=== PATIENT | male | born 1980 | race African-American/Black ===

== ENCOUNTER 2021-03-12 13:10 | Inpatient (IN) | payer MEDICAID ==
[~2021-03-12] VITALS: Ht 177.8 cm; Wt 121.1 kg
[2021-03-12] MEDS ORDERED: IV NS 0.9% 1,000 ML BAG IV ONE (13:30)
--- NOTE | 2021-03-12 13:30 | NUR ---
BIB ra c/o altered s/p possible heroin od. 2mg narcan given in field. The patient alert to his name. Stated that he took Fentanyl. In room air. Respiration regular and unlabored. Attached to the monitor. Will continue to monitor the patient.
--- NOTE | 2021-03-12 13:32 | NUR ---
EMPLOYMENT TRAINER LAC G 18.
[2021-03-12 13:40] LABS: BASOPHILS % (AUTO) 1.3 % (0.0-2.0); EOSINOPHILS % (AUTO) 1.9 % (0.0-6.0); HEMATOCRIT 39 % (39-51); HEMOGLOBIN 12.9 g/dL (13.5-17.5); LYMPHOCYTES # (AUTO) 1.5 K/uL (0.8-4.8); LYMPHOCYTES % (AUTO) 38.3 % (20.0-44.0); MEAN CORPUSCULAR HGB CONC 33 g/dl (31.0-36.0); MEAN CORPUSCULAR VOLUME 91 fL (80-96); MONOCYTES # (AUTO) 0.3 K/uL (0.1-1.30); MONOCYTES % (AUTO) 8.6 % (2.0-12.0); NEUTROPHILS # (AUTO) 1.9 K/uL (1.8-8.9); NEUTROPHILS % (AUTO) 49.9 % (43.0-81.0); PLATELET COUNT (AUTO) 130 K/uL (150-450); RED BLOOD CELL COUNT(AUTO) 4.31 MIL/uL (4.5-6.0); WHITE BLOOD COUNT (AUTO) 3.8 K/uL (4.3-11.0)
[2021-03-12] MEDS ORDERED: NALOXONE PREFILLED SYRINGE 2 MG/2 ML SYRINGE ONE (13:56)
[2021-03-12] MEDS ORDERED: NALOXONE PREFILLED SYRINGE 2 MG/2 ML SYRINGE IV ONE (14:00)
[2021-03-12] MEDS ORDERED: NALOXONE HCL 0.4 MG/ML AMPUL IV ONE (14:00)
--- NOTE | 2021-03-12 14:08 | NUR ---
The patient`s oxygen saturation is at 82% with simple mask 10l/min. Made Dr Miller aware. The patient is placed on oxygen at 15l/min via non-rebreather mask. Oxygen imporved to 92%. Will continue to monitor the patient
[2021-03-12 14:13] LABS: ALANINE AMINOTRANSFERASE 15 U/L (12-78); ALBUMIN 3.5 g/dL (3.4-5.0); ALCOHOL, BLOOD < 3 mg/dL (0-0); ALKALINE PHOSPHATASE 80 U/L (46-116); ASPARTATE AMINOTRANSFERASE 21 U/L (15-37); BILIRUBIN,DIRECT 0.1 mg/dL (0.0-0.2); BILIRUBIN,TOTAL 0.3 mg/dL (0.2-1.0); CALCIUM, SERUM 8.6 mg/dL (8.5-10.1); CARBON DIOXIDE 27 mmol/L (21-32); CHLORIDE 105 mmol/L (98-107); CREATININE 1.5 mg/dL (0.6-1.3); GLUCOSE 134 mg/dL (74-106); POTASSIUM 3.2 mmol/L (3.5-5.1); SODIUM SERUM 143 mmol/L (136-145); TOTAL PROTEIN, SERUM 7.8 g/dL (6.4-8.2); UREA NITROGEN, BLOOD 12 mg/dL (7-18)
[2021-03-12 14:14] LABS: ACETAMINOPHEN 0 ug/ml (10-30)
[2021-03-12 15:00] LABS: ABG BASE EXCESS -3.7 mmol/L; ABG OXYGEN SATURATION 87.5 % (92.0-98.5); ABG PCO2 44.7 mmHg (35.0-45.0); ABG PH 7.318 (7.350-7.450); ABG PO2 56.8 mmHg (75.0-100.0); AaDO2 611.5 mmHg; COHb 0.9 % (0.5-1.5); MetHb 0.5 % (0.0-1.5); O2Hb 86.3 % (94.0-97.0); SITE, ABG Left Radial; VENT MODE, BG NRB 15L 100%
[2021-03-12 15:09] LABS: BILIRUBIN,URINE Negative (NEGATIVE); COLOR,URINE YELLOW (YELLOW); LEUKOCYTE ESTERASE ,URINE Negative (NEGATIVE); NITRITE, URINE Negative (NEGATIVE); PROTEIN,URINE 100 mg/dl (NEGATIVE); UGLUCOSE Negative (NEGATIVE); UROBILINOGEN,URINE 0.2 EU/dL (0.2)
--- NOTE | 2021-03-12 15:16 | NUR ---
MOVE SHEET SUBMITTED AND CALLED FOR ICU BED.
[2021-03-12 15:24] LABS: BACTERIA,URINE Few /HPF (None Seen); MUCUS,URINE Few /LPF (None Seen); SQUAMOUS EPITHELIAL CELL,UR Few /HPF (None Seen); WBC,URINE 0-2 /HPF (0-3)
--- NOTE | 2021-03-12 15:57 | NUR ---
THE PATIENT ALERT TO SELF. DENIES PAIN. IN NO APPARENT DISTRESS.
[2021-03-12] MEDS ORDERED: LORAZEPAM INJ 2 MG/ML VIAL IV PRN (16:00)
[2021-03-12] MEDS ORDERED: ONDANSETRON HCL/PF 4 MG/2 ML VIAL IVP PRN (16:00)
[2021-03-12] MEDS ORDERED: Z GUARD REMEDY 2 OZ OINT TP PRN (16:00)
--- NOTE | 2021-03-12 17:30 | NUR ---
report given to nurse Sam[place]oa
[2021-03-12 18:00] VITALS: BP 134/78
[2021-03-12] MEDS: POTASSIUM CL. PREMIX PERIPHER. 50 ML IV SCH ×2 (18:16→18:57)
--- NOTE | 2021-03-12 18:17 | NUR ---
The patient is transfered to [facility] per [facility] policy.
--- NOTE | 2021-03-12 18:23 | NUR ---
RN NOTE 1755: Admitted patient from ED due to ARF secondary to possible OD. Patient is lethargic, unable to answer questions at this time. Skin assessment done, intact. 2 PIVs intact. On Bipap / rate 16, 100%, sat 97-98%. 1820: K replacement ongoing. Placed bed alarm on.
[2021-03-12 18:25] LABS: CREATININE, URINE 266.4 MG/DL (30.0-125.0)
[2021-03-12 19:00] VITALS: BP 125/75
--- NOTE | 2021-03-12 19:45 | NUR ---
BEAM BUILDER NOTE. RECEIVED PT IN BED IN SEMI-FOWLERS POSITION, ON BIPAP 15/5, 16, 100%. PT IN NO RESP DISTRESS, TOLERATING CURRENT SETTINGS. PT A/O X 1, LETHARGIC ABLE TO OPENS EYES, AND ABLE TO STATE HIS NAME. IV TO LAC & RAC PATENT AND INTACT FLUSHING WELL. SR ON THE MONITOR, pt CURRENTLY IS NPO, SIDE RAILS UP X 2, BED LOCKED AND IN THE LOWEST POSITION WILL CONTINUE TO MONITOR.
[2021-03-12 20:00] VITALS: BP 122/72
--- NOTE | 2021-03-12 20:08 | NUR ---
RECEIVED PT ON BIPAP 15, 16, 100%. NO RESP DISTRESS. PT TOLERATING SETTINGS. CONTINUE TO MONITOR. Addendum: 03/12/21 at 2009 by SERJIO LAKE RT Amended: Links added.
[2021-03-12] MEDS: HEPARIN SODIUM, PORCINE 5000 UNITS/1 ML VIAL SQ SCH (20:58)
[2021-03-12 21:00] VITALS: BP 102/65
[2021-03-12 22:00] VITALS: BP 117/70
[2021-03-12 23:00] VITALS: BP 110/64
[2021-03-13] VITALS (23 sets, daily range): BP systolic 90–134; BP diastolic 42–90
--- NOTE | 2021-03-13 01:23 | NUR ---
PT WOKE UP AND REMOVED THE BIPAP MASK OFF. PT PLACED ON 3L NC RN NOTIFIED. BIPAP S/B AND WILL CONTINUE TO MONITOR.
--- NOTE | 2021-03-13 02:00 | NUR ---
RN NOTE PT O2 SAT 87-88% AFTER BEING ON 5 L O2 NC FOR 30-MIN. PLACED PT ON NON-REBREATHER MASK AT 15/MIN. O2 SAT NOW 93%
[2021-03-13 04:43] LABS: BASOPHILS # (AUTO) 0.1 K/uL (0.0-0.2); BASOPHILS % (AUTO) 0.4 % (0.0-2.0); EOSINOPHILS % (AUTO) 0.1 % (0.0-6.0); HEMATOCRIT 40 % (39-51); HEMOGLOBIN 13.3 g/dL (13.5-17.5); LYMPHOCYTES # (AUTO) 0.6 K/uL (0.8-4.8); LYMPHOCYTES % (AUTO) 4.1 % (20.0-44.0); MEAN CORPUSCULAR HGB CONC 33 g/dl (31.0-36.0); MEAN CORPUSCULAR VOLUME 91 fL (80-96); MONOCYTES # (AUTO) 0.7 K/uL (0.1-1.30); MONOCYTES % (AUTO) 4.5 % (2.0-12.0); NEUTROPHILS # (AUTO) 13.3 K/uL (1.8-8.9); NEUTROPHILS % (AUTO) 90.9 % (43.0-81.0); PLATELET COUNT (AUTO) 132 K/uL (150-450); RED BLOOD CELL COUNT(AUTO) 4.44 MIL/uL (4.5-6.0); WHITE BLOOD COUNT (AUTO) 14.6 K/uL (4.3-11.0)
[2021-03-13 05:04] LABS: CALCIUM, SERUM 8.4 mg/dL (8.5-10.1); CREATININE 1.1 mg/dL (0.6-1.3); MAGNESIUM 1.9 mg/dL (1.8-2.4); POTASSIUM 3.7 mmol/L (3.5-5.1)
--- NOTE | 2021-03-13 06:58 | NUR ---
RN NOTE PT CONTINUES TO BE ON NON REBREATHER MASK 15 L/MIN O2 SAT 97-99%, A/O X 3 PT REMAINS NPO, ASPIRATION PRECAUTIONS IN PLACE, SIDE RAILS UP X 2, BED LOCKED AND IN THE LOWEST POSITION, CALL LIGHT WITHIN REACH. WILL CONTINUE TO MONITOR PT.
--- NOTE | 2021-03-13 07:00 | NUR ---
RN NOTES RECEIVED PT ON BED, A/Ox3-4, ON NON- REBREATHER MASK AT 15L , , O2 SAT WNL, NO DISTRESS NOTED, ON TELE SR HR IN 80'S, PT NPO AT THIS TIME, IV SITES ,CLEAN DRY AND INTACT, SR UP x3, CALL LIGHT WITHIN EASY REACH, BED KAM AND IN LOWEST POSITION, CONTINUE TO MONITOR.
[2021-03-13] MEDS: HEPARIN SODIUM, PORCINE 5000 UNITS/1 ML VIAL SQ SCH ×2 (08:27→20:11)
[2021-03-13] MEDS ORDERED: PANTOPRAZOLE 40 MG VIAL IV SCH (09:00)
[2021-03-13 10:37] LABS: ABG BASE EXCESS 1.8 mmol/L; ABG OXYGEN SATURATION 92.2 % (92.0-98.5); ABG PCO2 48.4 mmHg (35.0-45.0); ABG PH 7.375 (7.350-7.450); ABG PO2 61.6 mmHg (75.0-100.0); COHb 0.4 % (0.5-1.5); MetHb 0.4 % (0.0-1.5); O2Hb 91.5 % (94.0-97.0); SITE, ABG Right Radial; VENT MODE, BG NRB AT 15LPM
[2021-03-13] MEDS: PIPERACILLIN /TAZOBACTAM 3.375 G in IV D5W 50 ML IV SCH ×3 (11:41→23:00)
--- NOTE | 2021-03-13 12:00 | NUR ---
RN NOTES PT IS MORE ALERT , NURSING SWALLOWING EVAL DONE, PT ABLE TO EAT WELL, METAL FURNITURE PANEL COVERER NOTIFIED , REGULAR DIET ORDERED PER METAL FURNITURE PANEL COVERER ORDER .
--- NOTE | 2021-03-13 17:00 | NUR ---
RN NOTES O2 SAT DOWN TO MID 80'S , ON 6 L O2 N/C , PT PLACE ON FACE MASK AT 6L , O2 SAT 90% TO 91% , CONTINUE TO MONITOR.
--- NOTE | 2021-03-13 18:39 | NUR ---
RN NOTES PT REMAINS ON FACE MASK AT 7L , O2 SAT AT 91-92%, NO DISTRESS NOTED , SR UP x3, CALL LIGHT WITHIN EASY EACH, BED LOCKED AND IN LOWEST POSITION , WILL ENDORS TO VEGETABLE II FARMWORKER NURSE FOR CONTINUITY OF CARE .
--- NOTE | 2021-03-13 19:30 | NUR ---
RN NOTE RECEIVED PATIENT IN BED. A/OX3. ON OXYGEN 10L/MIN VIA SIMPLE MASK. 02 SAT 92%. RESPIRATIONS ARE EVEN AND UNLABORED. NO S/SS OB NOTED. NO C/O PAIN AT THIS TIME. IN NO APPARENT DISTRESS. IV ACCESS IN LEFT AND RIGHT AC#18 PATENT AND SALINE LOCKED. BED IS LOW AND LOCKED, HOB ELEVATED IN HIGH FOWLERS, SIDE RIAL SUP X2, CALL LIGHT WITHIN REACH. WILL CONTINUE TO MONITOR THROUGHOUT SHIFT. Addendum: 03/13/21 at 2107 by DARRELL BOLAND RN TELE MONITOR READS SINUS [id number]
--- NOTE | 2021-03-13 20:00 | NUR ---
RN NOTE PATIENT EXPERIENCING DESATURATION TO 74% ON 10L SIMPLE MASK. FLUCTUATING TO 86%. SPO2 MONITOR CONNECTION CHANGED. PATIENT STILL IN LOW 80S. CHANGED TO NON REBREATHER 15L/MIN O2 SAT 95%. WILL TITRATE PATIENT STATUS ALLOWS.
--- NOTE | 2021-03-13 21:55 | NUR ---
RN NOTE PATIENT IS REFUSING TO HAVE THE PULSE OX CONNECTED WELL THE MASK FOR OXYGEN. EXPLAINED TO THE PATIENT THE USES AND BENEFITS THAT IT PROVIDES, PATIENT CONTINUES TO REFUSE. PATIENT IS ALSO STATING HE WILL GO AMA TONIGHT. VIDEO CAMERA OPERATOR DULCE MARIA MADE AWARE. FIRMWARE SOFTWARE VERIFICATION ENGINEER DR. CASTLE ALSO AWARE.
--- NOTE | 2021-03-13 23:08 | NUR ---
RN NOTE PATIENT REFUSED 2300 ZOSYN. PATIENT ALSO REFUSING BLOOD PRESSURE TO BE TAKEN. INFORMED LINE DANCER RENEE AND CONTACT FINGER ASSEMBLER DR. CASTLE.
--- NOTE | 2021-03-14 | NUR ---
RN NOTE PATIENT REFUSED VITAL SIGNS, AND ASSESSMENT FOR 0000.
--- NOTE | 2021-03-14 00:12 | NUR ---
RN NOTE PATIENT SIGNED AMA FORM. REFUSED TO SIGN BELONGING LIST. 2 RN SIGN FOR PATIENT LEAVING WITH BELONGINGS STATED ON FORM. DR. CASTLE MADE AWARE THAT PATIENT SIGNED AMA. IV SITES REMOVED. PATIENT AMBULATED DOWN STAIRS WITH DRYWALL FINISHER FOREMAN RENEE. PATIENT CALLED SOMEONE TO PICK HIM UP.
== END 2021-03-14 00:47 | disposition left against medical advice (07) | DRG 812 ==
LOC: ER 13:13 → ICU 17:17
PROVIDERS: ADMIT Nurse Practitioner Acute Care; ATTEND Nurse Practitioner Acute Care
PROC: 5A09357 Assistance with Respiratory Ventilation, Less than 24 Consecutive Hours, Continuous Positive Airway Pressure (ICD-10-PCS; principal; 2021-03-12)
DX: T43.621A Poisoning by amphetamines, accidental (unintentional), initial encounter (principal); J96.01 Acute respiratory failure with hypoxia; J69.0 Pneumonitis due to inhalation of food and vomit; N17.0 Acute kidney failure with tubular necrosis; G92 Toxic encephalopathy; F15.10 Other stimulant abuse, uncomplicated; F11.10 Opioid abuse, uncomplicated; Y92.89 Other specified places as the place of occurrence of the external cause; E87.6 Hypokalemia; Z20.822 Contact with and (suspected) exposure to COVID-19; F17.210 Nicotine dependence, cigarettes, uncomplicated; D72.819 Decreased white blood cell count, unspecified; F14.10 Cocaine abuse, uncomplicated
CPT/HCPCS: 36415; 36600; 71045-TC; 80048-TC; 80076-TC; 81001; 82570-TC; 82803-TC; 83735-TC; 83880; 84100-TC; 84300-TC; 84484-TC; 85025-TC; 87081-TC; 93307-TC; 94760-TC; 99082-TC; A4349; C9113; C9803; G0378; G0480; J1644; J2310; J2543; J3480; J7030; J7050; J7060